=== PATIENT | female | born 1995 ===

== ENCOUNTER 2018-12-22 03:12 | Observation (INO) ==
[2018-12-22] MEDS ORDERED: ONDANSETRON 4 MG/2 ML VIAL IV STA (03:56)
[2018-12-22 04:44] LABS: Apearance,Urine CLEAR (Clear); Bilirubin,Urine Negative (Negative); Blood, Urine Negative (Negative); Glucose,Urine (UA) Negative (Negative); Ketones,Urine Negative (Negative); Mucus,Urine Occasional /LPF (Occasional); Nitrite,Urine Negative (Negative); Protein,Urine Negative; RBC,Urine 1 /HPF (0-4); Squamous Epithelial Cell,Urine Occasional /HPF (0-10); Urine Color Yellow (Yellow); Urine Specific Gravity 1.028 (1.001-1.035); Urine Urobilinogen < 2.0 EU/DL (0.2-1.0); WBC,Urine 3 /HPF (0-6)
[2018-12-22] MEDS ORDERED: ONDANSETRON 4 MG/2 ML VIAL IV ONE (05:11)
[2018-12-22] MEDS ORDERED: fentaNYL 100 MCG/2 ML VIAL IV STA (05:11)
[2018-12-22 05:15] LABS: Basophils % 0.1 % (0.0-0.8); Eosinophils # 0.4 10*3/uL (0.0-0.87); Eosinophils % 5.5 % (0.00-10.9); Hematocrit 39.8 VOL% (35.7-47.0); Hemoglobin 13.2 GM/DL (12.0-16.0); Immature Granulocytes % 0.3 %; Immature Granulocytes Absolute 0.02 #; Lymphocytes # 3.1 10*3/uL (1.4-4.0); Lymphocytes % 40.4 % (21.3-54.2); Mean Corpuscular HGB Conc 33.2 GM/DL (32-36); Mean Corpuscular Volume 86.9 FL (87-102); Mean Platelet Volume 9.7 FL (9.6-12.0); Monocytes % 7.7 % (1.7-12.7); Platelet Count 257 T/CUMM (130-400); Red Blood Count 4.58 MC/CUMM (3.8-5.5); Red Cell Distribution Width 11.9 % (9.3-17.3); White Blood Count 7.6 T/CUMM (4-12)
[2018-12-22 05:47] LABS: Bilirubin,Total 0.5 MG/DL (0.2-1.0); Osmolality,Calculated 278.4 MOS/KG (273-304)
[2018-12-22] MEDS ORDERED: MEPERIDINE 50 MG TABLET PO PRN ×2 (08:34)
[2018-12-22] MEDS ORDERED: LORazepam 1 MG TABLET PO PRN (08:35)
[2018-12-22] MEDS ORDERED: Epinephrine [Epipen 2-Pak] 0.3 MG SUBCUT PRN (08:35)
[2018-12-22] MEDS: MEPERIDINE 25 MG/1 ML VIAL IV PRN (09:22)
[2018-12-22] MEDS: LEVOFLOXACIN INJ 750 MG in PREMIX 1 EACH IV SCH (09:25)
[2018-12-22] MEDS: PANTOPRAZOLE 40 MG TABLET PO SCH (09:54)
[2018-12-22] MEDS: SERTRALINE 50 MG TABLET PO SCH (09:54)
[2018-12-22] MEDS: DEXTROSE 5% NACL 0.45% 1,000 ML IV SCH ×3 (09:55→19:50)
[2018-12-22 10:48] LABS: Hepatitis B Core IgM Quant < 0.05 Index; Hepatitis B Surface Ag Quant < 0.10 Index; Hepatitis B Surface Ag Result Negative (Negative); Hepatitis C Virus Ab Quant 0.09 Index; Hepatitis C Virus Ab Result Negative (Negative)
[2018-12-22] MEDS ORDERED: ALBUTEROL 2.5 MG/3 ML NEB RESP TX PRN (13:00)
[2018-12-22] MEDS: MEPERIDINE 50 MG/1 ML VIAL IV PRN ×2 (16:53→23:07)
[2018-12-22] MEDS: ONDANSETRON 4 MG/2 ML VIAL IV PRN (16:54)
[2018-12-23] MEDS: DEXTROSE 5% NACL 0.45% 1,000 ML IV SCH ×2 (04:07→18:44)
[2018-12-23] MEDS: MEPERIDINE 50 MG/1 ML VIAL IV PRN ×3 (04:07→20:45)
[2018-12-23] MEDS: ONDANSETRON 4 MG/2 ML VIAL IV PRN ×3 (04:07→21:45)
[2018-12-23] MEDS: LEVOFLOXACIN INJ 750 MG in PREMIX 1 EACH IV SCH (06:48)
[2018-12-23] MEDS: PANTOPRAZOLE 40 MG TABLET PO SCH (08:43)
[2018-12-23] MEDS: SERTRALINE 50 MG TABLET PO SCH (08:43)
[2018-12-23] MEDS ORDERED: PANTOPRAZOLE 40 MG TABLET PO ONE (09:24)
[2018-12-23] MEDS ORDERED: SEVOFLURANE 1 UNIT/15 MINUTE INH ONE (14:48)
[2018-12-23] MEDS ORDERED: GLYCOPYRROLATE 0.4 MG/2 ML VIAL ONE (14:48)
[2018-12-23] MEDS ORDERED: PROPOFOL 200 MG/20 ML VIAL IV ONE (14:48)
[2018-12-23] MEDS ORDERED: MIDAZOLAM 2 MG/2 ML VIAL ONE (14:48)
[2018-12-23] MEDS ORDERED: fentaNYL 100 MCG/2 ML VIAL ONE (14:48)
[2018-12-23] MEDS ORDERED: PHENYLEPHRINE 1 MG/10 ML SYRINGE IV ONE (14:48)
[2018-12-23] MEDS ORDERED: ONDANSETRON 4 MG/2 ML VIAL ONE (14:48)
[2018-12-23] MEDS ORDERED: ROCURONIUM 100 MG/10 ML VIAL IV ONE (14:49)
[2018-12-23] MEDS ORDERED: SUCCINYLCHOLINE 200 MG/10 ML VIAL ONE (14:49)
[2018-12-23] MEDS ORDERED: NEOSTIGMINE 10 MG/10 ML VIAL ONE (14:49)
[2018-12-23] MEDS ORDERED: diphenhydrAMINE 50 MG/1 ML VIAL IV PRN (14:52)
[2018-12-23] MEDS ORDERED: ONDANSETRON 4 MG/2 ML VIAL IV PRN (14:52)
[2018-12-23] MEDS ORDERED: MEPERIDINE 25 MG/1 ML VIAL IV PRN (14:52)
[2018-12-23] MEDS: MEPERIDINE 25 MG/1 ML VIAL IV PRN ×2 (15:47→18:44)
[2018-12-24] MEDS: MEPERIDINE 50 MG/1 ML VIAL IV PRN ×2 (01:16→06:38)
[2018-12-24] MEDS: diphenhydrAMINE CAP 25 MG CAPSULE PO PRN ×3 (01:30→10:39)
[2018-12-24] MEDS: DEXTROSE 5% NACL 0.45% 1,000 ML IV SCH (02:59)
[2018-12-24 05:22] LABS: Basophils % 0.1 % (0.0-0.8); Eosinophils # 0.2 10*3/uL (0.0-0.87); Eosinophils % 2.5 % (0.00-10.9); Hematocrit 39.6 VOL% (35.7-47.0); Hemoglobin 13.3 GM/DL (12.0-16.0); Immature Granulocytes % 0.3 %; Immature Granulocytes Absolute 0.03 #; Lymphocytes # 2.1 10*3/uL (1.4-4.0); Lymphocytes % 22.1 % (21.3-54.2); Mean Corpuscular HGB Conc 33.6 GM/DL (32-36); Mean Corpuscular Volume 86.8 FL (87-102); Mean Platelet Volume 9.9 FL (9.6-12.0); Monocytes % 5.5 % (1.7-12.7); Neutrophils % 69.5 % (38.7-73.9); Platelet Count 271 T/CUMM (130-400); Red Blood Count 4.56 MC/CUMM (3.8-5.5); Red Cell Distribution Width 11.6 % (9.3-17.3); White Blood Count 9.3 T/CUMM (4-12)
[2018-12-24 06:02] LABS: Albumin 3.7 G/DL (3.4-5.0); Bilirubin,Total 0.8 MG/DL (0.2-1.0); Calcium 8.6 MG/DL (8.5-10.1); Osmolality,Calculated 271.7 MOS/KG (273-304); Total Protein 6.7 G/DL (6.4-8.3)
[2018-12-24] MEDS: LEVOFLOXACIN INJ 750 MG in PREMIX 1 EACH IV SCH (06:41)
[2018-12-24] MEDS: ONDANSETRON 4 MG/2 ML VIAL IV PRN (06:44)
[2018-12-24] MEDS: PANTOPRAZOLE 40 MG TABLET PO SCH (09:11)
[2018-12-24] MEDS: SERTRALINE 50 MG TABLET PO SCH (09:11)
[2018-12-24] MEDS: MEPERIDINE 25 MG/1 ML VIAL IV PRN (09:55)
[2018-12-24 11:17] VITALS: BP 134/82
== END 2018-12-24 11:48 | disposition home or self-care (01) ==
LOC: N.ED 03:12 → N.EDINP 03:12 → N.3E 06:21
PROVIDERS: ADMIT Surgery; ATTEND Surgery
PROC: LAPCHOL (2018-12-23 12:20)